=== PATIENT | female | born 1990 | race Caucasian/White ===

== ENCOUNTER 2020-03-24 18:00 | Outpatient (CLI) | payer OTHER, SELFPAY ==
--- NOTE | ~2020-03-24 | XR_ITS ---
EXAMINATION: XR hip BI 2V w AP pelvis DATE: 03/24/2020 18:23 INDICATION: Bilateral sciatic pain TECHNIQUE: AP view the pelvis and two views of each hip were obtained. COMPARISON: None. FINDINGS: There is apparent dextroscoliosis of the lumbar spine. Pelvic bone alignment is normal. The re is no fracture. The hip joint spaces are maintained. Phleboliths are noted in the pelvis. IMPRESSION: 1. Unremarkable hip radiographs. 2. Apparent dextroscoliosis of the lumbar spine. Reviewed, dictated and finalized at location A.
== END 2020-03-24 18:01 | disposition home or self-care (01) ==
PROVIDERS: PCP Family Medicine; Visit Provider Family Medicine
DX: M53.3 Sacrococcygeal disorders, not elsewhere classified (principal)
CPT/HCPCS: 73521